=== PATIENT | male | born 1965 | race Caucasian/White ===

== ENCOUNTER 2020-09-27 11:00 | Outpatient (CLI) | payer BC, SELFPAY ==
[2020-09-27 11:09] VITALS: BMI 35.6
--- NOTE | 2020-09-27 11:09 | ECG_ITS ---
[facility] Test Date: 2020-09-27 Pat Name: Stewart Curry Jr Department: Room: Gender: Male Yarn Packer: : 1965 Requested By: Celine Gonzalez Order Number: [id number] Bagley MD: Anai Jaimes M.D. Interpretive Statements NAME OF STUDY: TREADMILL STRESS TEST INDICATION: Coronary Artery Disease Baseline blood pressure of 186/75 mm Hg, heart rate of 74 beats per minute and oxygen saturation 96%. EKG showed normal sinus rhythm, left anterior fascicular block. Right bundle branch block with secondary ST-T wave changes. The patient exercised for 9 minutes 19 seconds on a standard Kip protocol. Patient attained a maximum heart rate of 150 beats per minute(89% of the maximum predicted heart rate) with a blood pressure at the peak exercise of 216/93 mm Hg and oxygen saturation 96%. The EKG at the peak exercise revealed sinus tachycardia with no significant ST-T wave changes. Patient did not have any chest pain or any significant arrhythmis with the exercise. The study was terminated due to exertional fatigue and shortness of breath. During the recovery phase, there were no new changes. Isolated PVCs noted in recovery. Blood pressure at the end of the recovery phase was 157/86 mm Hg with a heart rate of 86 beats per minute and oxygen saturation 97%. CONCLUSION: 1. Normal EKG response to treadmill exercise. Interpretation limited by baseline ST-T wave changes. 2. No exercise-induced chest pain or cardiac arrhythmia 3. Excellent exercise tolerance, attained a maximum of 13.5 METs. Maximum VO2 of 47.3 mL/kg/min. 4. Baseline hypertension with normal response to exercise. Electronically Signed On 09-27-2020 13:52:20 SKIN SPECIALIST by Anai Jaimes M.D. [id number]
[2020-09-27 11:50] VITALS: BP 157/86; PULSE 86
== END 2020-09-27 11:01 | disposition home or self-care (01) ==
LOC: CDL 11:04
PROVIDERS: PCP Nurse Practitioner Family; Visit Provider Nurse Practitioner Family
DX: I25.10 Atherosclerotic heart disease of native coronary artery without angina pectoris (principal)
CPT/HCPCS: 93017

== ENCOUNTER 2022-07-31 09:36 | Outpatient (CLI) | payer BC, SELFPAY ==
--- NOTE | 2022-07-31 10:15 | USCV_ITS ---
Stewart Curry Age: 56 Gender: M : 1965 Exam Date: 07/31/2022 10:25 Ordering Phys: Tavon Crisostomo M.D ([email or web address]) Technologist: Vickie Horn [place] [facility] [place]: SOB, CABG BP: 120 / 70 HR: 50 Rhythm: Sinus Technical Quality: Adequate MEASUREMENTS (Male / Female) Normal Values 2D ECHO LV Diastolic Diameter PLAX 4.5 cm 4.2 - 5.9 / 3.9 - 5.3 cm LV Systolic Diameter PLAX 2.6 cm IVS Diastolic Thickness 1.5 cm 0.6 - 1.0 / 0.6 - 0.9 cm IVS Systolic Thickness 1.7 cm LVPW Diastolic Thickness 1.1 cm 0.6 - 1.0 / 0.6 - 0.9 cm LVPW Systolic Thickness 1.7 cm LVOT Diameter 2.3 cm LV Ejection Fraction 2D Teich 72.8 % LV Ejection Fraction MOD 2C 45.8 % LV Ejection Fraction 2C AL 46.0 % LA Diameter 4.0 cm LA Width 3.6 cm LA Height 5.0 cm RA Width 3.8 cm RA Height 4.6 cm Aorta at Sinotubular Diameter 3.2 cm IVC Diameter 2.0 cm M-MODE MV E Point Septal Separation 0.5 cm DOPPLER AV Peak Velocity 115.0 cm/s LVOT Peak Velocity 98.0 cm/s AV Area Cont Eq vti 3.6 cm squared AV Area Cont Eq pk 3.4 cm squared MV Peak Velocity 87.0 cm/s MV Area PHT 4.8 cm squared Mitral E to A Ratio 1.1 MV E' Velocity 82.0 cm/s TR Peak Velocity 61.0 cm/s TR Peak Gradient 1.5 mmHg Right Atrial Pressure 3.0 mmHg Pulmonary Artery Systolic Pressu 4.5 mmHg PV Peak Velocity 106.0 cm/s RV Acceleration Time 0.2 s RV Ejection Time 0.4 s RV AcT/ET 0.5 FINDINGS Left Ventricle Left ventricle is normal in size. LV systolic function is normal with EF of 50 to 55%. No regional wall motion abnormalities are seen. Right Ventricle RV size and function is normal Right Atrium Normal in size Left Atrium Normal in size Mitral Valve Structurally normal mitral valve. Mild mitral regurgitation. Aortic Valve Aortic valve is thickened. No significant stenosis or regurgitation seen Tricuspid Valve Insufficient TR jet to calculate RVSP Pulmonic Valve Mild pulmonic regurgitation Pericardium Normal Aorta Ascending aorta is normal in size IVC CONCLUSIONS LV systolic function is normal with EF 50 to 55%. Mild mitral regurgitation Aortic valve is thickened. Mild pulmonic regurgitation No comparison studies are available Tavon Crisostomo MD (Electronically Signed) Final Date: 09 August 2022 17:09 S
== END 2022-07-31 09:37 | disposition home or self-care (01) ==
PROVIDERS: PCP Nurse Practitioner Family; Visit Provider Internal Medicine
DX: Z95.1 Presence of aortocoronary bypass graft (principal); I10 Essential (primary) hypertension; I25.10 Atherosclerotic heart disease of native coronary artery without angina pectoris; I08.0 Rheumatic disorders of both mitral and aortic valves
CPT/HCPCS: 93306

== ENCOUNTER 2022-11-30 12:11 | Outpatient (CLI) | payer BC, SELFPAY ==
[2022-11-30 12:25] VITALS: BMI 35.6
--- NOTE | 2022-11-30 12:30 | ECG_ITS ---
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 Interpretive Statements NAME OF STUDY: TREADMILL STRESS TEST INDICATION: [DOT PHYSICAL CLEARANCE] EXERCISE DATA: The patient was exercised by Kip protocol. Baseline heart rate was 74 beats per minute. Baseline blood pressure was 144/84 millimeters of mercury. Target heart rate was 140 beats per minute. Maximum heart rate achieved was 152 which was 108% of the target heart rate. Maximum blood pressure was 194/91 millimeters of mercury. Total exercise time was 9 minutes. Maximum METs achieved was 10.2. The reason for ending the test was completion of the protocol. The patient complained of shortness of breath during the stress test, which then resolved at the end of the test. ELECTROCARDIOGRAM: BASELINE: Showed sinus rhythm, normal axis, PVCs and right bundle branch block. EKG interpretation is limited because of baseline ST-T wave changes and right bundle branch block CONCLUSION: 1. Exercise capacity is good 2. Heart rate response was appropriate 3. Blood pressure response was appropriate 4. Symptoms not suggestive of ischemia. 5. EKG interpretation of stress test is limited because of baseline right bundle branch block and ST-T wave changes.. Electronically Signed On 12-10-2022 11:44:38 TOP EXECUTIVE by Tavon Crisostomo M.D. [id number]
[2022-11-30 13:45] VITALS: BP 136/68; PULSE 83
== END 2022-11-30 12:12 | disposition home or self-care (01) ==
LOC: CDL 12:15
PROVIDERS: PCP Nurse Practitioner Family; Visit Provider Nurse Practitioner Family
DX: I25.10 Atherosclerotic heart disease of native coronary artery without angina pectoris (principal)
CPT/HCPCS: 93017

== ENCOUNTER 2024-08-14 07:48 | Observation (INO) | payer BC, SELFPAY ==
[2024-08-14] VITALS (10 sets, daily range): BP systolic 124–184; BP diastolic 72–104; PULSE 47–68; RESP 15–20; TEMP 36.8–38.2; O2SAT 92–98; BMI 36.9; BMI 37.5
--- NOTE | 2024-08-14 07:55 | XR_ITS ---
WS: [id number] Exam: XR chest 1V portable [id number] Date/Time of Exam: 08/14/2024 8:08 AM Reason For Exam: dyspnea/cough Comparison 10/03/2012. Lungs are fully inflated and clear. Normal cardiomediastinal silhouette. Signs of median sternotomy. Regional bony structures are intact. XR/XR chest 1V portable [id number] IMPRESSION: 1. Negative chest.
--- NOTE | 2024-08-14 07:55 | ECG_ITS ---
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 Measurements Intervals [place] Rate: 67 P: 24 DE: 185 QRS: -19 QRSD: 167 T: 71 QT: 429 QTc: 454 Interpretive Statements SINUS RHYTHM RIGHT BUNDLE BRANCH BLOCK [120+ ms QRS DURATION, UPRIGHT V1, 40+ ms S IN I/aVL/V4/V5/V6] No previous ECG available for comparison Electronically Signed On 08-14-2024 18:43:33 CDT by Tavon Crisostomo M.D. [id number] f
[2024-08-14 08:31] LABS: Basophils # 0.1 10^3/uL (0.0-0.1); Basophils % 0.9 %; Eosinophils # 0.1 10^3/uL (0.0-0.8); Eosinophils % 2.6 %; Hematocrit 43.4 % (37-53); Lymphocytes # 0.7 10^3/uL (0.8-4.8); Lymphocytes % 13.3 %; Mean Corpuscular HGB Conc 33.6 g/dL (30-55); Mean Corpuscular Volume 89.1 fl (82-101); Mean Platelet Volume 9.6 fL (7.4-10.4); Monocytes # 0.7 10^3/uL (0.2-0.9); Monocytes % 13.1 %; Neutrophils # 3.77 10^3/uL (1.8-7.7); Neutrophils % 69.5 %; Nucleated Red Blood Cells % 0 %; Platelet Count 147 10^3/cmm (157-399); Red Blood Count 4.87 10^6/uL (3.85-5.65); Red Cell Distribution Width 12.7 % (12.1-15.1); White Blood Count 5.42 10^3/uL (3.29-11.43)
[2024-08-14 08:50] LABS: Alanine Aminotransferase 38 U/L (0-41); Albumin Level 4.2 g/dL (3.5-5.2); Alkaline Phosphatase 63 U/L (40-130); Anion Gap 11.3 (5-19); Aspartate Amino Transferase 33 U/L (0-40); Blood Urea Nitrogen 10 mg/dL (6-20); Carbon Dioxide 25 mmol/L (22-29); Chloride 104 mmol/L (98-107); Creatinine Clr Calc Pharmacy 127.9994; Globulin 2.2 g/dL (1.3-4.6); Glomerular Filtration Rate 87.3 mL/min (90-130); Glucose 140 mg/dL (65-115); Osmolality Calculated 283 mOsm/kg (285-295); Potassium 4.3 mmol/L (3.5-5.1); Sodium 136 mmol/L (136-145); Total Bilirubin 0.8 mg/dL (0.15-1.2); Total Protein 6.4 g/dL (6.6-8.7)
[2024-08-14 08:51] LABS: Troponin(5th) Baseline 19 ng/L (0-15)
--- NOTE | 2024-08-14 09:47 | ED_ITS ---
HPI - Chest Pain 2 General: Chief Complaint: Chest Pain Stated Complaint: abn bp / (some chest pain) Time Seen by Provider: 08/14/24 07:54 History of Present Illness: 58-year-old male presents to the emergen cy room with complaint of elevated blood pressure and chest discomfort x 1wk. Radiates into his back he has a known history of coronary artery disease despite of intermittently having chest pain and abnormal blood pressures for the last week. He took his blood pressure medications about half hour before coming in today. No shortness of breath no orthopnea. Associated symptoms: Deny abdominal pain, dyspnea or fever(s) Related Data Home Medications Medication Instructions Recorded Confirmed amlodipine 10 mg tablet 10 mg PO DAILY 05/13/20 08/14/24 clopidogrel 75 mg tablet 75 mg PO DAILY 05/13/20 08/14/24 metformin 500 mg tablet 500 mg PO BID 05/15/22 08/14/24 diclofenac sodium 75 mg 75 mg PO DAILY 08/14/24 08/14/24 tablet,delayed release Previous Rx's Medication Instructions Recorded aspirin 81 mg tablet,delayed 81 mg PO DAILY #90 tabs 05/16/21 release (Adult Low Dose Aspirin) carvedilol 3.125 mg tablet (Coreg) 6.25 mg (2 x 3.125 mg) PO BID #180 07/31/24 tabs rosuvastatin 20 mg tablet 20 mg PO DAILY #90 tabs 07/31/24 Allergies Allergy/AdvReac Type Severity Reaction Status Date / Time Penicillins Allergy Unknown Unknown Verified 08/14/24 07:57 Review of Systems 2 Const: Denies: fever(s) or chills Card: Reports: chest pain Resp: Denies: dyspnea GI: Denies: abdominal pain : Denies: dysuria, urinary frequency or urinary urgency Musc: Denies: neck pain or back pain Skin/Breast: Denies: rash PFSH ED 2 PFSH: Medical History (Updated 08/14/24 @ 14:48 by Jarrett Bob DO) David syndrome HTN (hypertension) MARISSA (obstructive sleep apnea) Dyslipidemia ASHD (arteriosclerotic heart disease) Surgical History (Updated 08/14/24 @ 14:48 by Jarrett Bob DO) S/P CABG (coronary artery bypass graft) Family History Father Lung disease Social History Smoking and tobacco/nicotine status: never used tobacco/nicotine Household members: spouse Marital status: Physical Exam 2 Const: COMMON NORMALS: no acute distress GENERAL APPEARANCE: cooperative and comfortable ORIENTATION/CONSCIOUSNESS: Yes awake, Yes oriented to person, Yes oriented to place and Yes oriented to time HENMT: COMMON NORMALS: normocephalic, atraumatic and hearing grossly normal bilaterally HEAD & SCALP: normocephalic and atraumatic Resp: COMMON NORMALS: normal respiratory effort, No retractions, No use of accessory muscles and clear to auscultation bilaterally AUSCULTATION: clear to auscultation bilaterally Cardio: COMMON NORMALS: regular rate, regular rhythm and No murmurs present (Cardio) RATE: regular rate RHYTHM: regular rhythm GI: COMMON NORMALS: Soft to palpation and No hepatosplenomegaly present A USCULTATION: Yes normoactive bowel sounds PALPATION: Yes Soft to palpation, No Tenderness to palpation present (GI), No Guarding due to palpation present (GI) and Yes No hepatosplenomegaly present Extremity: COMMON NORMALS: normal to inspection, capillary refill normal, no clubbing, cyanosis or edema, no calf tenderness and no pedal edema Neuro: SENSORIUM/ORIENTATION: Yes oriented to person, Yes oriented to place and Yes oriented to time Skin: COMMON NORMALS: no rashes or lesions noted GENERAL SKIN EXAM: no rashes or lesions noted Course 2 Vital Signs: Vital signs: Vital Signs Temperature 99.4 F 08/14/24 07:57 Pulse Rate 51 L 08/14/24 13:56 Respiratory Rate 15 08/14/24 13:56 Blood Pressure 124/79 08/14/24 13:56 Pulse Oximetry 94 08/14/24 13:56 Oxygen Delivery Me thod Room Air 08/14/24 13:56 MDM - Chest Pain Medical Decision Making Labs and imaging reviewed. Cardiac enzymes are negative EKG is unchanged. 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 He has now been having intermittent chest pain for a week with a known history of coronary disease will admit for further evaluation including stress testing. Discussed with the patient. Blood pressure still elevated place him on half inch of Nitropaste. He has also received aspirin. Medical Records I reviewed the patient's medical records. Lab Data I reviewed the patient's lab results. 08/14/24 08:18 08/14/24 08:18 Radiology Impressions Chest X-Ray 08/14/24 07:55 IMPRESSION: 1. Negative chest. Laboratory Results WBC 5.42 10^3/uL (3.29-11.43) 08/14/24 08:18 RBC 4.87 10^6/uL (3.85-5.65) 08/14/24 08:18 Hgb 14.60 g/dL (11.27-16.99) 08/14/24 08:18 Hct 43.4 % (37-53) 08/14/24 08:18 MCV 89.1 fl (82-101) 08/14/24 08:18 MCH 30.0 pg (27-33) 08/14/24 08:18 MCHC 33.6 g/dL (30-55) 08/14/24 08:18 RDW 12.7 % (12.1-15.1) 08/14/24 08:18 Plt Count 147 10^3/cmm (157-399) L 08/14/24 08:18 MPV 9.6 fL (7.4-10.4) 08/14/24 08:18 Neut % (Auto) 69.5 % 08/14/24 08:18 Lymph % (Auto) 13.3 % 08/14/24 08:18 Dewitt % (Auto) 13.1 % 08/14/24 08:18 Eos % (Auto) 2.6 % 08/14/24 08:18 Baso % (Auto) 0.9 % 08/14/24 08:18 Neut # (Auto) 3.77 10^3/uL (1.8-7.7) 08/14/24 08:18 Lymph # (Auto) 0.7 10^3/uL (0.8-4.8) L 08/14/24 08:18 Dewitt # (Auto) 0.7 10^3/uL (0.2-0.9) 08/14/24 08:18 Eos # (Auto) 0.1 10^3/uL (0.0-0.8) 08/14/24 08:18 Baso # (Auto) 0.1 10^3/uL (0.0-0.1) 08/14/24 08:18 Nucleated RBC % (auto) 0 % 08/14/24 08:18 Nucleated RBCs # 0.0 /100WBC 08/14/24 08:18 Sodium 136 mmol/L (136-145) 08/14/24 08:18 Potassium 4.3 mmol/L (3.5-5.1) 08/14/24 08:18 Chloride 104 mmol/L (98-107) 08/14/24 08:18 Carbon Dioxide 25 mmol/L (22-29) 08/14/24 08:18 Anion Gap 11.3 (5-19) 08/14/24 08:18 BUN 10 mg/dL (6-20) 08/14/24 08:18 Creatinine 0.9 mg/dL (0.7-1.2) 08/14/24 08:18 GFR Calculation 87.3 mL/min (90-130) L 08/14/24 08:18 Glucose 140 mg/dL (65-115) H 08/14/24 08:18 Calculated Osmolality 283 mOsm/kg (285-295) L 08/14/24 08:18 Calcium 9.0 mg/dL (8.5-10.5) 08/14/24 08:18 Total Bilirubin 0.8 mg/dL (0.15-1.2) 08/14/24 08:18 AST 33 U/L (0-40) 08/14/24 08:18 ALT 38 U/L (0-41) 08/14/24 08:18 Alkaline Phosphatase 63 U/L (40-130) 08/14/24 08:18 Troponin T Baseline 19 ng/L (0-15) H 08/14/24 08:18 Troponin T 120 Minute 18.77 ng/L (0-15) H 08/14/24 10:18 Delta Troponin T -0.23 ABS# (0-10) L 08/14/24 10:18 Total Protein 6.4 g/dL (6.6-8.7) L 08/14/24 08:18 Albumin 4.2 g/dL (3.5-5.2) 08/14/24 08:18 Globulin 2.2 g/dL (1.3-4.6) 08/14/24 08:18 All radiology interpretation(s) finalized by discharge Clincial Decision Support The following clinical decision support tools were used to aid in care of the patient HEART Score -> History: Slightly Suspicous, EKG: Non-specific Changes, Age: 45- 64 yrs, Risk Factors: >/=3 Risk Factors, Troponin: Baseline Trop <16 ng/L. Resulting HEART Score: 4. Discharge Plan Discharge Patient Disposition: Placed in Observation Admit Provider: Kathe Etienne Clinical Impression: Chest pain, ASHD (arteriosclerotic heart disease), HTN (hypertension), S/P CABG (coronary artery bypass graft) Coding Level of Care Code ED Extractor Machine Operator for Pilar Vicente
--- NOTE | 2024-08-14 09:55 | ECG_ITS ---
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 Measurements Intervals [place] Rate: 55 P: 15 DC: 185 QRS: -15 QRSD: 169 T: 99 QT: 460 QTc: 443 Interpretive Statements SINUS BRADYCARDIA RIGHT BUNDLE BRANCH BLOCK [120+ ms QRS DURATION, UPRIGHT V1, 40+ ms S IN I/aVL/V4/V5/V6] MODERATE T-WAVE ABNORMALITY, CONSIDER LATERAL ISCHEMIA [-0.1+ mV T-WAVE IN I/aVL/V5/V6] Compared to ECG 08/14/2024 07:50:05 T-wave abnormality now present Possible ischemia now present Sinus rhythm no longer present Electronically Signed On 08-14-2024 18:54:51 CDT by Tavon Crisostomo M.D. [id number]
[2024-08-14 10:45] LABS: Troponin 5 2HR 18.77 ng/L (0-15)
[2024-08-14 10:49] LABS: Troponin 5 2HR Delta -0.23 ABS# (0-10)
[2024-08-14] MEDS: aspirin 81 mg Chew Tablet 324 MG PO (11:33)
[2024-08-14] MEDS: nitroglycerin 1 gm/inch oint Pkt 0.5 INCH TOPICAL (12:43)
--- NOTE | 2024-08-14 13:37 | PC.NURSE ---
Patient transferred from ED to CSU at 1330 via a wheelchair.
--- NOTE | 2024-08-14 13:51 | PM.HP ---
Providers/Chief Complaint Admitting Physician: Kathe Etienne MD Primary Care Provider: JAMIE Campos Chief Complaint: abn bp / (some chest pain) History of Present Illness Stewart Curry Jr is a 58 year old male with a history of coronary artery disease status post previous coronary artery bypass graft in 2007 who presented to the emergency room with chief complaint of left-sided chest pain. The pain is located in the left chest and substernal area without any radiation. He has had it off and on over the last week or so. He has had a mild nonproductive cough but no shortness of breath, nausea, vomiting or diaphoresis. No palpitations. Over the same timeframe he has had some elevations in his blood pressure. The symptoms and high blood pressures are very similar to the symptoms he experienced prior to being sent for bypass surgery many years ago. He feels like something is not right. This is the first time since his bypass surgery he has had any type of complaints of chest pain. At its worst the pain is 3 out of 10. When he was sent for bypass chest pain at that time at its worst was a 5 out of 10. He has not noted any discernible pattern. Pain will be brief up to a few hours or even a couple of days at a time without completely going away. He had some improvement with nitroglycerin in the emergency room but that was transient. Baseline and 2-hour troponin were around 19. Twelve-lead EKG with right bundle branch block and nonspecific changes similar to prior available comparisons. No ST elevation. Second EKG did demonstrate some bradycardia. He is on beta-blockade and recently had carvedilol dosing increased due to persistent blood pressure elevations. He was seen by Dr. Hayes on July 31. Last stress test was an exercise stress test in 11/2022. Review of Systems General: Reports: Other (ROS as per HPI or as otherwise noted here) Const: Denies: fever(s) Card: Reports: swelling of feet/ankles (not new or worse than baseline); Denies: syncope, dyspnea on exertion or orthopnea Resp: Denies: dyspnea or non-productive cough (mild) GI: Denies: abdominal pain, nausea, vomiting, change in bowel habits or hematochezia : Denies: difficulty urinating or hematuria Neuro: Denies: difficulty walking Cole/Lymph: Denies: easy bruising or easy bleeding Medications/Allergies Home Medications Medication Instructions Recorded Confirmed Last Taken Type amlodipine 10 mg tablet 10 mg PO DAILY 05/13/20 08/14/24 08/14/24 History clopidogrel 75 mg tablet 75 mg PO DAILY 05/13/20 08/14/24 08/14/24 History aspirin 81 mg tablet,delayed 81 mg PO DAILY #90 tabs 05/16/21 08/14/24 08/14/24 Rx release (Adult Low Dose Aspirin) metformin 500 mg tablet 500 mg PO BID 05/15/22 08/14/24 08/14/24 History carvedilol 3.125 mg tablet (Coreg) 6.25 mg (2 x 3.125 mg) PO BID #180 07/31/24 08/14/24 08/14/24 Rx tabs rosuvastatin 20 mg tablet 20 mg PO DAILY #90 tabs 07/31/24 08/14/24 08/14/24 Rx diclofenac sodium 75 mg 75 mg PO DAILY 08/14/24 08/14/24 08/14/24 History tablet,delayed release Allergies Allergy/AdvReac Type Severity Reaction Status Date / Time Penicillins Allergy Unknown Unknown Verified 08/14/24 07:57 PFSH Acute PFSH: Medical History (Updated 08/14/24 @ 20:01 by Kathe Etienne MD) Prediabetes History of pericarditis 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 HTN (hypertension) MARISSA (obstructive sleep apnea) Dyslipidemia ASHD (arteriosclerotic heart disease) Surgical History (Updated 08/14/24 @ 19:56 by Kathe Etienne MD) S/P CABG (coronary artery bypass graft) (~2007) 3V performed at [facility] Family History (Updated 08/14/24 @ 19:58 by Kathe Etienne MD) Father Lung disease Family/Other CAD (coronary artery disease) maternal uncle with CABG in 50s Mother Thyroid disease Other Diabetes Social History (Updated 08/14/24 @ 19:50 by Kathe Etienne MD) Smoking and tobacco/nicotine status: never used tobacco/nicotine Alcohol intake: never Substance/Drug Use: never Household members: spouse Marital status: Current occupational status: employed 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 Oriented x 3. Extraocular movements are intact. Moist mucous membranes. Neck is large but supple. Lungs are clear to auscultation bilaterally without any rales rhonchi or wheezes noted. Cardiovascular exam reveals regular rate and rhythm. No murmurs. Chest wall is not tender to palpation. Abdomen is soft, nontender with positive bowel sounds. Extremities 1+ pitting edema at the ankles. No calf tenderness. Data 08/14/24 08:18 08/14/24 08:18 Other Labs: Radiology Impressions Chest X-Ray 08/14/24 07:55 IMPRESSION: 1. Negative chest. Laboratory Results WBC 5.42 10^3/uL (3.29-11.43) 08/14/24 08:18 RBC 4.87 10^6/uL (3.85-5.65) 08/14/24 08:18 Hgb 14.60 g/dL (11.27-16.99) 08/14/24 08:18 Hct 43.4 % (37-53) 08/14/24 08:18 MCV 89.1 fl (82-101) 08/14/24 08:18 MCH 30.0 pg (27-33) 08/14/24 08:18 MCHC 33.6 g/dL (30-55) 08/14/24 08:18 RDW 12.7 % (12.1-15.1) 08/14/24 08:18 Plt Count 147 10^3/cmm (157-399) L 08/14/24 08:18 MPV 9.6 fL (7.4-10.4) 08/14/24 08:18 Neut % (Auto) 69.5 % 08/14/24 08:18 Lymph % (Auto) 13.3 % 08/14/24 08:18 Alexander % (Auto) 13.1 % 08/14/24 08:18 Eos % (Auto) 2.6 % 08/14/24 08:18 Baso % (Auto) 0.9 % 08/14/24 08:18 Neut # (Auto) 3.77 10^3/uL (1.8-7.7) 08/14/24 08:18 Lymph # (Auto) 0.7 10^3/uL (0.8-4.8) L 08/14/24 08:18 Alexander # (Auto) 0.7 10^3/uL (0.2-0.9) 08/14/24 08:18 Eos # (Auto) 0.1 10^3/uL (0.0-0.8) 08/14/24 08:18 Baso # (Auto) 0.1 10^3/uL (0.0-0.1) 08/14/24 08:18 Nucleated RBC % (auto) 0 % 08/14/24 08:18 Nucleated RBCs # 0.0 /100WBC 08/14/24 08:18 Sodium 136 mmol/L (136-145) 08/14/24 08:18 Potassium 4.3 mmol/L (3.5-5.1) 08/14/24 08:18 Chloride 104 mmol/L (98-107) 08/14/24 08:18 Carbon Dioxide 25 mmol/L (22-29) 08/14/24 08:18 Anion Gap 11.3 (5-19) 08/14/24 08:18 BUN 10 mg/dL (6-20) 08/14/24 08:18 Creatinine 0.9 mg/dL (0.7-1.2) 08/14/24 08:18 GFR Calculation 87.3 mL/min (90-130) L 08/14/24 08:18 Glucose 140 mg/dL (65-115) H 08/14/24 08:18 Calculated Osmolality 283 mOsm/kg (285-295) L 08/14/24 08:18 Calcium 9.0 mg/dL (8.5-10.5) 08/14/24 08:18 Total Bilirubin 0.8 mg/dL (0.15-1.2) 08/14/24 08:18 AST 33 U/L (0-40) 08/14/24 08:18 ALT 38 U/L (0-41) 08/14/24 08:18 Alkaline Phosphatase 63 U/L (40-130) 08/14/24 08:18 Troponin T Baseline 19 ng/L (0-15) H 08/14/24 08:18 Troponin T 120 Minute 18.77 ng/L (0-15) H 08/14/24 10:18 Delta Troponin T -0.23 ABS# (0-10) L 08/14/24 10:18 Total Protein 6.4 g/dL (6.6-8.7) L 08/14/24 08:18 Albumin 4.2 g/dL (3.5-5.2) 08/14/24 08:18 Globulin 2.2 g/dL (1.3-4.6) 08/14/24 08:18 A&P Assessment and plan (1) Chest pain: Precordial chest pain with features very similar to those experienced by Mr. Curry at the time he presented prior to being referred for bypass surgery. He has not had similar complaints of chest pain since 2007. Symptoms have been present off and on over the last week concerning for angina. Baseline and 2-hour troponin are similar without significant delta. EKG is similar to prior without any ST elevation. Mr. Curry follows with Dr. Parks in the outpatient setting and last saw him on July 31. At that time carvedilol dosing was increased due to suboptimally controlled blood pressures. He has had more notable bradycardia since then on vitals measured today that could be a contributing factor to chest pain Observation admission Stress testing with nuclear imaging Echocardiogram Continue serial cardiac enzymes with every 6 hours study Check hemoglobin A1c and lipid panel for further risk stratification Continue home aspirin, Plavix, beta-blockade and statin May have to consider dose adjustment to carvedilol Qualifiers: Chest pain type: precordial pain Qualified Code(s): R07.2 - Precordial pain (2) ASHD (arteriosclerotic heart disease): Status post three-vessel coronary artery bypass graft in 2007 at [facility] (3) HTN (hypertension): Primary hypertension, recently noted to be suboptimally controlled leading to increase in carvedilol dosing. Also on amlodipine. Continue home amlodipine Currently continuing home carvedilol though may have to consider decreasing dose due to bradycardia pending results of stress testing Qualifiers: Hypertension type: primary hypertension Qualified Code(s): I10 - Essential (primary) hypertension (4) Dyslipidemia: Statin therapy recently initiated at July cardiology clinic visit. Normal LFTs noted today. Continue statin therapy Check lipid panel in the morning (5) Prediabetes: Elevated blood sugars noted here. Recent A1c not available. Is on metformin twice daily chronically. Hold metformin secondary to potential need for contrast depending on results of stress testing Sliding scale insulin currently with Accu-Cheks A1c in the morning (6) MARISSA (obstructive sleep apnea): On CPAP at home with auto titrating settings from 6-12 May use home CPAP with sleep (7) BMI 36.0-36.9,adult: Plan Osteoarthritis predominantly involving the knees on diclofenac which is currently held pending cardiac evaluation, will give Tylenol in place of this VTE prophylaxis: Lovenox Antibiotics: none Pending studies: A1c, lipid, echo, stess test (lexiscan mibi) Telemetry: ordered due to chest pain Manjarrez: not currently indicated Line(s): peripheral IVs Disposition plan: Home with outpatient follow up to PCP and cardiology anticipated, possibly with medication adjustments (coreg) Code Status: Full Code Supportive care otherwise Findings, concerns and plans were discussed with patient and he was given an opportunity to ask questions Attestations Medical Necessity Statement*: Currently anticipate a stay less than two midnights in this gentleman presenting with chest pain who has a history of coronary artery disease status post prior bypass surgery. Symptoms today are very similar to symptoms prior to his bypass surgery in 2007. He has had chest pain for about a week. Plan is for further evaluation with continued cardiac enzymes, echocardiogram and nuclear stress testing as described above. Diagnoses Precordial pain R07.2 Chest pain type: precordial pain ASHD (arteriosclerotic heart disease) I25.10 Primary hypertension I10 Hypertension type: primary hypertension Dyslipidemia E78.5 Prediabetes R73.03 MARISSA (obstructive sleep apnea) G47.33 BMI 36.0-36.9,adult Z68.36
--- NOTE | 2024-08-14 13:55 | ECG_ITS ---
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 Measurements Intervals [place] Rate: 51 P: 14 ND: 190 QRS: -11 QRSD: 162 T: 114 QT: 483 QTc: 445 Interpretive Statements SINUS BRADYCARDIA RIGHT BUNDLE BRANCH BLOCK [120+ ms QRS DURATION, UPRIGHT V1, 40+ ms S IN I/aVL/V4/V5/V6] MODERATE T-WAVE ABNORMALITY, CONSIDER LATERAL ISCHEMIA [-0.1+ mV T-WAVE IN I/aVL/V5/V6] Compared to ECG 08/14/2024 09:49:51 No significant changes Electronically Signed On 08-14-2024 18:53:24 CDT by Tavon Crisostomo M.D. [id number]
--- NOTE | 2024-08-14 14:03 | USCV_ITS ---
Stewart Curry Age: 58 Gender: M : 1965 Exam Date: 08/14/2024 15:12 Ordering Phys: Kathe Etienne MD Technologist: Exam Location: [facility] [place] Indication: cp BP: 125 / 70 HR: 1828 Rhythm: Sinus Technical Quality: Adequate MEASUREMENTS (Male / Female) Normal Values 2D ECHO LV Diastolic Diameter PLAX 4.1 cm 4.2 - 5.9 / 3.9 - 5.3 cm IVS Diastolic Thickness 1.0 cm 0.6 - 1.0 / 0.6 - 0.9 cm IVS Systolic Thickness 1.8 cm LVPW Diastolic Thickness 1.1 cm 0.6 - 1.0 / 0.6 - 0.9 cm LVPW Systolic Thickness 1.2 cm LVOT Diameter 2.1 cm LV Ejection Fraction 2D Teich 65.8 % LV Ejection Fraction MOD 4C 61.2 % LV Ejection Fraction MOD 2C 79.4 % LV Ejection Fraction 2C AL 78.8 % LA Diameter 4.6 cm RA Systolic Volume 4C AL 68.0 ml RA Systolic Volume 4C MOD 61.0 ml Aorta at Sinotubular Diameter 3.2 cm M-MODE LA Ao Ratio MM 1.4 AV Cusp Separation MM 2.3 cm DOPPLER AV Peak Velocity 67.3 cm/s AV Area Cont Eq vti 6.2 cm squared AV Area Cont Eq pk 5.4 cm squared MV Area PHT 3.0 cm squared Mitral E to A Ratio 0.9 TR Peak Velocity 136.0 cm/s TR Peak Gradient 7.4 mmHg TV Peak E Velocity 98.0 cm/s Right Atrial Pressure 3.0 mmHg Pulmonary Artery Systolic Pressu 10.4 mmHg PV Peak Velocity 114.0 cm/s FINDINGS Left Ventricle Left ventricle is normal in size. LV systolic function is normal with EF of 60 to 65%. No regional wall motion abnormalities are seen. Right Ventricle Normal in size and function. Right Atrium Normal in size Left Atrium Normal in size Mitral Valve Structurally normal mitral valve. Mild mitral regurgitation. Aortic Valve Structurally normal aortic valve. No significant stenosis or regurgitation. Tricuspid Valve Mild tricuspid regurgitation. Pulmonary artery systolic pressure is normal. Pulmonic Valve Trace pulmonic regurgitation. Pericardium Normal Aorta Normal in size IVC Appears to be normal CONCLUSIONS LV systolic function is normal with EF of 60 -65%. Mild mitral regurgitation. Mild tricuspid regurgitation Trace pulmonic regurgitation Compared to prior echocardiogram from 2021, LV systolic function appears to be improved. Tavon Crisostomo MD (Electronically Signed) Final Date: 15 August 2024 08:47 S
--- NOTE | 2024-08-14 14:03 | ECG_ITS ---
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 Interpretive Statements Lung unchanged pre/post procedure; No Symptoms Reported [id number]
[2024-08-14] MEDS: enoxaparin 40 mg/0.4 mL Syringe SUBCUT (14:41)
[2024-08-14 15:22] LABS: Troponin 5 6HR 15.74 ng/L (0-15)
[2024-08-14 15:23] LABS: Troponin 5 6HR Delta -3.26 ng/L (0-12)
[2024-08-14 17:24] LABS: Glucose Point of Care 159 mg/dL (70-110)
[2024-08-14] MEDS: insulin lispro 100 unit/1 mL SUBCUT (17:38)
[2024-08-14] MEDS: carvedilol 3.125 mg Tablet 6.25 MG PO (21:05)
[2024-08-14 21:32] LABS: Glucose Point of Care 119 mg/dL (70-110)
[2024-08-15] VITALS (12 sets, daily range): BP systolic 110–139; BP diastolic 60–82; PULSE 52–73; RESP 18–27; TEMP 36.6–37.5; O2SAT 91–97
[2024-08-15] MEDS: acetaminophen 325 mg Tablet 650 MG PO ×2 (02:53→20:10)
[2024-08-15 04:21] LABS: Basophils % 0.3 %; Eosinophils # 0.1 10^3/uL (0.0-0.8); Eosinophils % 1.2 %; Hematocrit 41.5 % (37-53); Lymphocytes # 0.8 10^3/uL (0.8-4.8); Lymphocytes % 14.4 %; Mean Corpuscular HGB Conc 34.2 g/dL (30-55); Mean Corpuscular Hemoglobin 30.4 pg (27-33); Mean Corpuscular Volume 88.9 fl (82-101); Mean Platelet Volume 9.7 fL (7.4-10.4); Monocytes # 0.7 10^3/uL (0.2-0.9); Monocytes % 11.6 %; Neutrophils # 4.13 10^3/uL (1.8-7.7); Neutrophils % 71.8 %; Nucleated Red Blood Cells % 0 %; Platelet Count 149 10^3/cmm (157-399); Red Blood Count 4.67 10^6/uL (3.85-5.65); Red Cell Distribution Width 12.8 % (12.1-15.1); White Blood Count 5.76 10^3/uL (3.29-11.43)
[2024-08-15 04:22] LABS: Partial Thromboplastin Time 30.1 SECONDS (23.9-36.7)
[2024-08-15 04:31] LABS: Anion Gap 15.1 (5-19); Blood Urea Nitrogen 12 mg/dL (6-20); Calcium 8.5 mg/dL (8.5-10.5); Carbon Dioxide 23 mmol/L (22-29); Chloride 104 mmol/L (98-107); Glomerular Filtration Rate 77.3 mL/min (90-130); Glucose 147 mg/dL (65-115); Magnesium 1.7 mg/dL (1.7-2.3); Osmolality Calculated 288 mOsm/kg (285-295); Potassium 4.1 mmol/L (3.5-5.1); Sodium 138 mmol/L (136-145)
[2024-08-15 04:36] LABS: Estmated Average Glucose 131; Hemoglobin A1C 6.2 % (4.0-6.0)
[2024-08-15 04:42] LABS: Cholesterol 109 mg/dL (0-200); HDL Cholesterol 33 mg/dL (60-100); LDL Cholesterol Calculated 53 mg/dL (50-129); LDL HDL Ratio 1.61 RATIO (0.00-3.22); NT Pro B Type Natriuretic Pept 40 pg/mL (0-125); Triglycerides 114 mg/dL (0-150)
[2024-08-15 06:13] LABS: Glucose Point of Care 112 mg/dL (70-110)
[2024-08-15] MEDS: regadenoson 0.4 Mg/5 ml Syringe IVP (07:13)
--- NOTE | 2024-08-15 08:22 | PC.NURSE ---
Patient returned to unit from stress test at 0822.
[2024-08-15] MEDS: aspirin 81 mg EC Tablet PO (08:29)
[2024-08-15] MEDS: pantoprazole DR 40 mg Tablet PO (08:29)
[2024-08-15] MEDS: amlodipine 10 mg Tablet PO (08:29)
[2024-08-15] MEDS: clopidogrel 75 mg Tablet PO (08:29)
[2024-08-15] MEDS: atorvastatin 40 mg Tablet 80 MG PO (08:29)
[2024-08-15] MEDS: carvedilol 3.125 mg Tablet 6.25 MG PO ×2 (08:29→20:10)
--- NOTE | 2024-08-15 08:30 | PC.NURSE ---
Provider ordered lasix 20mg IVP once. order entered.
[2024-08-15] MEDS: FUROsemide 10 mg/mL SDV 2mL 20 MG IVP (09:17)
--- NOTE | 2024-08-15 09:18 | PC.CHAP ---
Pastoral Care Encounter/Spiritual Assessment Type of Contact [] Declined pipe machine operator visit [] Patient/Family/Request visit [] Outpatient visit [] Follow-up visit [] Physician referral [] Code/Alert [x] Routine visit [] Staff referral [] Actively dying [] Patient sleeping [] Family support [] [] Out of room [] Palliative care [] [] Receiving care in room [] Pre-surgical visit [] Trauma [] Long length of stay [] ICU visit [] Other: Relational/Emotional Strength [x] Patient feels connected with others/family/visitors/staff [] Distress [] Loneliness/isolation [] Abandonment Spirituality of Patient [x] Person of Tess [] Attends Advent of their Tess [x] Believes in Prayer [] Reads Bible or Restorationist materials [] There are Spiritual issues to be addressed 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 Interventions [x] Prayer [x] Active listening [] Non-anxious presence [x] Spiritual/emotional support [] Crisis/trauma care [] Spiritual counseling [] Bereavement support [] Provided bereavement packet [] Provided Bible/devotional materials [] Provided toy/stuffed animal, coloring book to patient or family member [] Provided Communion [] Anointing/Neal [] Salvation [x] Completed spiritual assessment [] Other: Impact on Illness or Injury [] Angry [] Fearful [] Anxious [] Often cries [] Exhaustion [] Unable to work [] Unable to attend holiness [] Unable to walk/stand [] Unable to read [] Unable to drive [] Unable to eat/drink [] Unable to sleep [] Unable to be with family [] Patient intubated [] Other: Summary Time spent with patient 5 min
--- NOTE | 2024-08-15 11:43 | P.PN_ITS ---
Subjective 2 Subjective: Patient was seen this morning, currently chest pain-free, underwent cardiac stress testing, denies any fevers, chills, no cough does have minimal lower extremity edema, discussed cardiac stress test with Dr. Crisostomo, shows evidence of ischemia left circumflex territory, plan on cardiac catheterization tomorrow n.p.o. midnight, spoke to patient again about stress test results, plan on cath tomorrow, he is agreeable, will monitor today, Vitals/I&O/Wt Last Vital Signs Temp 98.1 F 08/15/24 11:36 Pulse 57 L 08/15/24 11:36 Resp 18 08/15/24 11:36 BP 110/64 08/15/24 11:36 Pulse Ox 96 08/15/24 11:36 O2 Del Method Room Air 08/15/24 11:36 08/14/24 08/15/24 08/15/24 22:59 06:59 14:59 Intake Total 240 / 240 240 / 240 Balance 240 / 240 240 / 240 Weight last 48 hrs Weight 126.416 kg Weight 129 kg Weight 127.006 kg Physical Exam 2 Const: COMMON NORMALS: no acute distress and patient oriented x3 Resp: COMMON NORMALS: normal respiratory effort, No retractions, No use of accessory muscles and clear to auscultation bilaterally AUSCULTATION: clear to auscultation bilaterally Cardio: COMMON NORMALS: regular rate, regular rhythm, S1 normal heart sound present and S2 normal heart sound present RATE: regular rate RHYTHM: r egular rhythm HEART SOUNDS: S1 normal heart sound present and S2 normal heart sound present GI: COMMON NORMALS: Normal to inspection, nondistended, normoactive bowel sounds present and non-tender Extremity: NARRATIVE EXTREMITY EXAM: 1+ edema Neuro: COMMON NORMALS: patient oriented x3 Psych: COMMON NORMALS: mental status grossly normal Data 08/15/24 03:47 08/15/24 03:47 A&P Assessment and plan (1) ASHD (arteriosclerotic heart disease): Status post three-vessel coronary artery bypass graft in 2007 at [facility] (2) HTN (hypertension): Qualifiers: Hypertension type: primary hypertension Qualified Code(s): I10 - Essential (primary) hypertension (3) Dyslipidemia: (4) Prediabetes: (5) MARISSA (obstructive sleep apnea): On CPAP at home with auto titrating settings from 6-12 May use home CPAP with sleep (6) BMI 36.0-36.9,adult: Plan Chest pain Cardiac stress testing IMPRESSIONS 1. Abnormal myocardial perfusion imaging with medium sized area of prior infarct with significant medium to large sized area of trinity-infarct ischemia seen in the left circumflex artery territory. 2. LV systolic function is normal Cardiac echo CONCLUSIONS LV systolic function is normal with EF of 60 -65%. Mild mitral regurgitation. Mild tricuspid regurgitation Trace pulmonic regurgitation Compared to prior echocardiogram from 2021, LV systolic function appears to be improved. ? Plan ? Continue aspirin, statin, Plavix, Coreg ? N.p.o. midnight, for coronary angiography tomorrow ? Cardiology consulted ? Monitor chest pain Osteoarthritis predominantly involving the knees on diclofenac which is currently held pending cardiac evaluation, will give Tylenol in place of this VTE prophylaxis: Lovenox Antibiotics: none Pending studies: A1c, lipid, echo, stess test (lexiscan mibi) Telemetry: ordered due to chest pain Manjarrez: not currently indicated Line(s): peripheral IVs Disposition plan: Home with outpatient follow up to PCP and cardiology anticipated, possibly with medication adjustments (coreg) Code Status: Full Code Supportive care otherwise Findings, concerns and plans were discussed with patient and he was given an opportunity to ask questions Attestations 2 Medical Necessity Statement*: Patient requires hospitalization for chest pain undergoing coronary angiography tomorrow, cardiology consulted Diagnoses ASHD (arteriosclerotic heart disease) I25.10 Primary hypertension I10 Hypertension type: primary hypertension Dyslipidemia E78.5 Prediabetes R73.03 MARISSA (obstructive sleep apnea) G47.33 BMI 36.0-36.9,adult Z68.36
--- NOTE | 2024-08-15 14:03 | NMCV_ITS ---
NM mariel perf SPECT r/s* [id number] Stewart Curry Age: 58 Gender: M : 1965 Exam Date: 08/15/2024 06:29 Ordering Phys: Kathe Etienne MD Technologist: BERNICE Cedillo Exam Location: [facility] Indications: cp STRESS TEST Please see separate stress test report in [facility] for full findings IMAGE PROTOCOL Rest/Stress 1 Lexiscan Day Radiopharmaceutical Dose (mCi) Administration Site Administered by Rest: Tc-99m 11 IV Yudi Morton, SLOT OPERATIONS DIRECTOR Sestamibi Stress:Tc-99m 32.9 IV Yudi Morton, SLOT OPERATIONS DIRECTOR Sestamibi Rest: 15-Aug-2024 60 Discovery 630 Stress: 15-Aug-2024 30 Discovery 630 0.4mg Lexiscan. Images obtained in supine and prone position. SPECT RESULTS Technical Quality: Good Raw Data Analysis: Normal Image Corrections: No attenuation or motion correction applied Summed Stress Score: 7 Summed Rest Score: 3 Summed Difference Score: 4 PERFUSION FINDINGS There is a medium sized area of partially reversible perfusion defect noted in inferolateral wall. This is consistent with medium sized area of prior infarct with significant medium to large sized area of trinity-infarct ischemia seen in the left circumflex artery territory. FUNCTIONAL RESULTS (calculated via Gated SPECT) Stress Image LV EF (%): 61 Stress EDV (mL):138 TID: 1.09 Stress ESV (mL):54 FUNCTIONAL FINDINGS: There is normal left ventricular systolic function. IMPRESSIONS 1. Abnormal myocardial perfusion imaging with medium sized area of prior infarct with significant medium to large sized area of trinity-infarct ischemia seen in the left circumflex artery territory. 2. LV systolic function is normal Tavon Crisostomo MD (Electronically Signed) Final Date: 15 August 2024 09:04 S
[2024-08-15] MEDS: enoxaparin 40 mg/0.4 mL Syringe SUBCUT (14:31)
--- NOTE | 2024-08-15 16:20 | P.CONIM_ITS ---
Providers/Reason For Consult 2 Consulting Physician/Specialty*: Tavon Crisostomo MD/ Cardiology Reason for Consult*: Chest pain/abnormal stress test Requesting Physician: Amari Sigala MD Attending Physician: Amari Sigala MD Primary Care Provider: JAMIE Campos History of Present Illness History of Present Illness Stewart Curry Jr is a 58 year old male with past medical history of coronary artery disease with CABG performed in 2007, who has been having on and off chest pain for last 1 week. Has a stress test that is showing prior infarct with significant trinity-infarct ischemia seen in the lateral/inferolateral wall. EKG shows sinus rhythm with right bundle branch block. Troponins have not trended up. ECHO shows normal LV systolic function Review of Systems 2 Const: Denies: fever(s) or chills Card: Reports: chest pain Resp: Denies: dyspnea GI: Denies: abdominal pain : Denies: dysuria, urinary frequency or urinary urgency Musc: Denies: neck pain or back pain Skin/Breast: Denies: rash Medications/Allergies Home Medications Medication Instructions Recorded Confirmed Last Taken Type amlodipine 10 mg tablet 10 mg PO DAILY 05/13/20 08/14/24 08/14/24 History clopidogrel 75 mg tablet 75 mg PO DAILY 05/13/20 08/14/24 08/14/24 History aspirin 81 mg tablet,delayed 81 mg PO DAILY #90 tabs 05/16/21 08/14/24 08/14/24 Rx release (Adult Low Dose Aspirin) metformin 500 mg tablet 500 mg PO BID 05/15/22 08/14/24 08/14/24 History carvedilol 3.125 mg tablet (Coreg) 6.25 mg (2 x 3.125 mg) PO BID #180 07/31/24 08/14/24 08/14/24 Rx tabs rosuvastatin 20 mg tablet 20 mg PO DAILY #90 tabs 07/31/24 08/14/24 08/14/24 Rx diclofenac sodium 75 mg 75 mg PO DAILY 08/14/24 08/14/24 08/14/24 History tablet,delayed release Allergies Allergy/AdvReac Type Severity Reaction Status Date / Time Penicillins Allergy Unknown Unknown Verified 08/14/24 07:57 Current Medications Generic Name Dose Route Start Last Admin Trade Name Freq PRN Reason Stop Dose Admin Acetaminophen 650 mg 08/14/24 13:56 08/15/24 02:53 Acetaminophen 325 Mg Tablet PO 650 mg Q6H PRN Administration Mild/Mod Pain Or Temp >/= 101 Amlodipine Besylate 10 mg 08/15/24 09:00 08/15/24 08:29 Amlodipine 10 Mg Tablet PO 10 mg DAILY FORTUNATO Administration Aspirin 81 mg 08/15/24 09:00 08/15/24 08:29 Aspirin 81 Mg Ec Tablet PO 81 mg DAILY FORTUNATO Administration Atorvastatin Calcium 80 mg 08/15/24 09:00 08/15/24 08:29 Atorvastatin 40 Mg Tablet PO 80 mg DAILY FORTUNATO Administration Carvedilol 6.25 mg 08/14/24 21:00 08/15/24 08:29 Carvedilol 3.125 Mg Tablet PO 6.25 mg BID@ FORTUNATO Administration Clopidogrel Bisulfate 75 mg 08/15/24 09:00 08/15/24 08:29 Clopidogrel 75 Mg Tablet PO 75 mg DAILY FORTUNATO Administration Enoxaparin Sodium 40 mg 08/14/24 14:00 08/15/24 14:31 Enoxaparin 40 Mg/0.4 Ml Syringe SUBCUT 40 mg Q24H FORTUNATO Administration Insulin Human Lispro 0 unit 08/14/24 21:00 08/14/24 21:41 Insulin Lispro 100 Unit/1 Ml SUBCUT Not Given BEDTIME FORTUNATO Protocol Insulin Human Lispro 0 unit 08/14/24 18:00 08/15/24 12:26 Insulin Lispro 100 Unit/1 Ml SUBCUT Not Given TIDWM [facility] Protocol Pantoprazole Sodium 40 mg 08/15/24 09:00 08/15/24 08:[address] 40 Mg Tablet PO 40 mg DAILY FORTUNATO Administration PFSH Acute 2 PFSH: Medical History Prediabetes History of pericarditis 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 HTN (hypertension) MARISSA (obstructive sleep apnea) Dyslipidemia ASHD (arteriosclerotic heart disease) Surgical History S/P CABG (coronary artery bypass graft) (~2007) 3V performed at [facility] Family History Father Lung disease Family/Other CAD (coronary artery disease) maternal uncle with CABG in 50s Mother Thyroid disease Other Diabetes Social History Smoking and tobacco/nicotine status: never used tobacco/nicotine Alcohol intake: never Substance/Drug Use: never Household members: spouse Marital status: Current occupational status: employed 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 [] NECK: No jugular vein distension. [] HEENT: No cyanosis. No icterus. No pallor. [] HEART: Regular S1 and S2. No murmur, rub or gallop. [] LUNGS: Clear to auscultate bilaterally. [] CENTRAL NERVOUS SYSTEM: Grossly nonfocal. [] EXTREMITIES: Lower extremities with 1+ edema bilaterally. Data 08/16/24 04:37 08/16/24 04:37 A&P Assessment and plan (1) Chest pain: Qualifiers: Chest pain type: precordial pain Qualified Code(s): R07.2 - Precordial pain (2) S/P CABG (coronary artery bypass graft): (3) Dyslipidemia: (4) HTN (hypertension): Qualifiers: Hypertension type: primary hypertension Qualified Code(s): I10 - Essential (primary) hypertension (5) ASHD (arteriosclerotic heart disease): Plan Patient has new onset anginal symptoms. Stress test is abnormal. With multiple risk factors and new onset angina, we will proceed with coronary angiogram with possible PCI. Risks and benefits of procedure were discussed. We will proceed with the procedure tomorrow morning. N.p.o. past midnight. Thank you for involving us with care of this patient. We will continue to follow. Please call with questions. Consult Attestations 2 Medical Necessity Statement: Care expected to cross 2 midnights. Coding Level of Care Code Acute Code for Chg Fwd Diagnoses Precordial pain R07.2 Chest pain type: precordial pain S/P CABG (coronary artery bypass graft) Z95.1 Dyslipidemia E78.5 Primary hypertension I10 Hypertension type: primary hypertension ASHD (arteriosclerotic heart disease) I25.10
[2024-08-15 17:26] LABS: Glucose Point of Care 152 mg/dL (70-110)
[2024-08-15 17:26] LABS: Glucose Point of Care 126 mg/dL (70-110)
[2024-08-15 17:26] LABS: Glucose Point of Care 195 mg/dL (70-110)
[2024-08-15 17:26] LABS: Glucose Point of Care 194 mg/dL (70-110)
[2024-08-15 20:55] LABS: Glucose Point of Care 141 mg/dL (70-110)
[2024-08-16] VITALS (12 sets, daily range): BP systolic 94–129; BP diastolic 48–85; PULSE 50–64; RESP 13–28; TEMP 36.7–37.2; O2SAT 94–98
[2024-08-16 05:14] LABS: Basophils % 0.8 %; Eosinophils # 0.1 10^3/uL (0.0-0.8); Eosinophils % 3.8 %; Hematocrit 40.9 % (37-53); Lymphocytes # 1.2 10^3/uL (0.8-4.8); Lymphocytes % 31.3 %; Mean Corpuscular HGB Conc 33.7 g/dL (30-55); Mean Corpuscular Hemoglobin 29.9 pg (27-33); Mean Corpuscular Volume 88.7 fl (82-101); Mean Platelet Volume 9.6 fL (7.4-10.4); Monocytes # 0.9 10^3/uL (0.2-0.9); Monocytes % 23.1 %; Neutrophils # 1.49 10^3/uL (1.8-7.7); Neutrophils % 40.5 %; Nucleated Red Blood Cells % 0 %; Platelet Count 142 10^3/cmm (157-399); Red Blood Count 4.61 10^6/uL (3.85-5.65); White Blood Count 3.68 10^3/uL (3.29-11.43)
[2024-08-16 05:32] LABS: Anion Gap 10.1 (5-19); Blood Urea Nitrogen 10 mg/dL (6-20); Calcium 8.5 mg/dL (8.5-10.5); Carbon Dioxide 28 mmol/L (22-29); Chloride 106 mmol/L (98-107); Creatinine Clr Calc Pharmacy 114.9241; Glomerular Filtration Rate 77.3 mL/min (90-130); Glucose 105 mg/dL (65-115); Osmolality Calculated 289 mOsm/kg (285-295); Potassium 4.1 mmol/L (3.5-5.1); Sodium 140 mmol/L (136-145)
--- NOTE | 2024-08-16 06:22 | W.PM.OPSUD ---
Surgery/Procedure H&P Update DATE OF PROCEDURE: August 16, 2024 DATE H&P PERFORMED: 08/15/24 H&P UPDATE INFORMATION: I have reviewed H&P completed within last 30 days, I have examined patient prior to procedure and No changes to prior documentation PREOP DIAGNOSIS: Chest pain/abnormal stress test PRIMARY INDICATION FOR PROCEDURE: Chest pain/abnormal stress test PLANNED PROCEDURE: Left heart cath with possible percutaneous coronary intervention PATIENT REASSESSED PRIOR TO SEDATION, WITH NO CHANGE NOTED: Yes PHYSICAL EXAM: alert, oriented x 3, clear to auscultation bilaterally and regular rate & rhythm AIRWAY EVAL/ANESTHESIA PLAN: normal airway, ASA III, Local Anesthesia, Risks, benefits & alternatives of sedation and/or procedure discussed and Patient agrees to continue as planned ADDITIONAL INFORMATION: Moderate sedation
--- NOTE | 2024-08-16 07:23 | PC.NURSE ---
Patient returned to CSU from catheterization laboratory technician at 0710.
[2024-08-16 07:56] LABS: Glucose Point of Care 139 mg/dL (70-110)
--- NOTE | 2024-08-16 08:07 | P.PN_ITS ---
Subjective 2 Subjective: Patient is chest pain free. Patient had PCI to SVG to Diagonal artery. SVG to OM is patent. LOPEZ is atretic and occluded. [place] LAD is patent. Vitals/I&O/Wt Last Vital Signs Temp 98.1 F 08/16/24 07:26 Pulse 55 L 08/16/24 07:53 Resp 17 08/16/24 07:53 BP 116/75 08/16/24 07:53 Pulse Ox 96 08/16/24 07:53 O2 Del Method Room Air 08/16/24 07:53 08/15/24 08/16/24 08/16/24 22:59 06:59 14:59 Intake Total 120 / 600 Balance 120 / 600 Weight last 48 hrs Weight 278 lb 11.2 oz Weight 278 lb 11.2 oz Weight 284 lb 6.341 oz Physical Exam 2 Narrative: GENERAL: Patient is alert, awake and oriented x3. [] NECK: No jugular vein distension. [] HEENT: No cyanosis. No icterus. No pallor. [] HEART: Regular S1 and S2. No murmur, rub or gallop. [] LUNGS: Clear to auscultate bilaterally. [] CENTRAL NERVOUS SYSTEM: Grossly nonfocal. [] EXTREMITIES: Lower extremities with 1+ edema bilaterally. Data 08/16/24 04:37 08/16/24 04:37 A&P Assessment and plan (1) Chest pain: Qualifiers: Chest pain type: precordial pain Qualified Code(s): R07.2 - Precordial pain (2) S/P CABG (coronary artery bypass graft): (3) Dyslipidemia: (4) HTN (hypertension): Qualifiers: Hypertension type: primary hypertension Qualified Code(s): I10 - Essential (primary) hypertension (5) ASHD (arteriosclerotic heart disease): Plan Patient had successful vascularization of SVG to diagonal artery with 1 stent. Continue aspirin and plavix High intensity statin therapy Thank you for involving us with care of this patient. We will continue to follow. Please call with questions. Attestations 2 Medical Necessity Statement*: Care expected to cross 2 midnights. Coding Level of Care Code Acute Code for Chg Fwd Diagnoses Precordial pain R07.2 Chest pain type: precordial pain S/P CABG (coronary artery bypass graft) Z95.1 Dyslipidemia E78.5 Primary hypertension I10 Hypertension type: primary hypertension ASHD (arteriosclerotic heart disease) I25.10
[2024-08-16] MEDS: atorvastatin 40 mg Tablet 80 MG PO (08:23)
[2024-08-16] MEDS: pantoprazole DR 40 mg Tablet PO (08:23)
[2024-08-16] MEDS: carvedilol 3.125 mg Tablet 6.25 MG PO ×2 (08:24→20:34)
[2024-08-16] MEDS: amlodipine 10 mg Tablet PO (08:24)
--- NOTE | 2024-08-16 11:52 | PM.PN ---
Subjective Subjective: Patient was seen this morning, he denies any chest pain, status post cath, status post cardiac stenting Vitals/I&O/Wt Last Vital Signs Temp 98.7 F 08/16/24 11:06 Pulse 60 08/16/24 11:06 Resp 28 H 08/16/24 11:06 BP 113/71 08/16/24 11:06 Pulse Ox 96 08/16/24 11:06 O2 Del Method Room Air 08/16/24 11:06 08/15/24 08/16/24 08/16/24 22:59 06:59 14:59 Intake Total 120 / 600 240 / 240 Balance 120 / 600 240 / 240 Weight last 48 hrs Weight 126.416 kg Weight 126.416 kg Weight 129 kg Physical Exam Const: COMMON NORMALS: no acute distress and patient oriented x3 Resp: COMMON NORMALS: normal respiratory effort, No retractions, No use of accessory muscles and clear to auscultation bilaterally AUSCULTATION: clear to auscultation bilaterally Cardio: COMMON NORMALS: regular rate, regular rhythm, S1 normal heart sound present and S2 normal heart sound present RATE: regular rate RHYTHM: regular rhythm HEART SOUNDS: S1 normal heart sound present and S2 normal heart sound present GI: COMMON NORMALS: Normal to inspection, nondistended, normoactive bowel sounds present and non-tender Extremity: COMMON NORMALS: no pedal edema Neuro: COMMON NORMALS: patient oriented x3 Psych: COMMON NORMALS: mental status grossly normal Data 08/16/24 04:37 08/16/24 04:37 A&P Assessment and plan (1) ASHD (arteriosclerotic heart disease): Status post three-vessel coronary artery bypass graft in 2007 at [facility] (2) HTN (hypertension): Qualifiers: Hypertension type: primary hypertension Qualified Code(s): I10 - Essential (primary) hypertension (3) Dyslipidemia: (4) Prediabetes: (5) MARISSA (obstructive sleep apnea): On CPAP at home with auto titrating settings from 6-12 May use home CPAP with sleep (6) BMI 36.0-36.9,adult: Plan Chest pain Cardiac stress testing IMPRESSIONS 1. Abnormal myocardial perfusion imaging with medium sized area of prior infarct with significant medium to large sized area of trinity-infarct ischemia seen in the left circumflex artery territory. 2. LV systolic function is normal Cardiac echo CONCLUSIONS LV systolic function is normal with EF of 60 -65%. Mild mitral regurgitation. Mild tricuspid regurgitation Trace pulmonic regurgitation Compared to prior echocardiogram from 2021, LV systolic function appears to be improved. ? Plan ? Continue aspirin, statin, Plavix, Coreg ? Status post coronary angiography today status post 1 stent to SVG to diagonal ? Cardiology consulted ? Monitor chest pain Osteoarthritis predominantly involving the knees on diclofenac which is currently held pending cardiac evaluation, will give Tylenol in place of this VTE prophylaxis: Lovenox Antibiotics: none Pending studies: A1c, lipid, echo, stess test (lexiscan mibi) Telemetry: ordered due to chest pain Manjarrez: not currently indicated Line(s): peripheral IVs Disposition plan: Home with outpatient follow up to PCP and cardiology anticipated, possibly with medication adjustments (coreg) Code Status: Full Code Supportive care otherwise Findings, concerns and plans were discussed with patient and he was given an opportunity to ask questions Attestations Medical Necessity Statement*: Patient requires hospitalization for cardiac cath Diagnoses ASHD (arteriosclerotic heart disease) I25.10 Primary hypertension I10 Hypertension type: primary hypertension Dyslipidemia E78.5 Prediabetes R73.03 MARISSA (obstructive sleep apnea) G47.33 BMI 36.0-36.9,adult Z68.36
[2024-08-16] MEDS: enoxaparin 40 mg/0.4 mL Syringe SUBCUT (14:35)
[2024-08-16 17:20] LABS: Glucose Point of Care 108 mg/dL (70-110)
[2024-08-16] MEDS: acetaminophen 325 mg Tablet 650 MG PO (20:34)
[2024-08-16 20:53] LABS: Glucose Point of Care 143 mg/dL (70-110)
[2024-08-17] VITALS: BP 111/61; PULSE 57; RESP 16; TEMP 36.8; O2SAT 95
[2024-08-17 04:00] VITALS: BP 113/56; PULSE 50; RESP 14; TEMP 36.7; O2SAT 97
[2024-08-17 04:34] LABS: Basophils % 0.8 %; Eosinophils # 0.2 10^3/uL (0.0-0.8); Eosinophils % 5.8 %; Hematocrit 38.6 % (37-53); Lymphocytes # 1.2 10^3/uL (0.8-4.8); Lymphocytes % 30.7 %; Mean Corpuscular HGB Conc 32.9 g/dL (30-55); Mean Corpuscular Hemoglobin 29.6 pg (27-33); Mean Platelet Volume 9.9 fL (7.4-10.4); Monocytes # 0.8 10^3/uL (0.2-0.9); Monocytes % 19.6 %; Neutrophils % 42.8 %; Nucleated Red Blood Cells % 0 %; Platelet Count 128 10^3/cmm (157-399); Red Blood Count 4.29 10^6/uL (3.85-5.65); Red Cell Distribution Width 12.9 % (12.1-15.1); White Blood Count 3.97 10^3/uL (3.29-11.43)
[2024-08-17 04:52] LABS: Anion Gap 10.1 (5-19); Blood Urea Nitrogen 11 mg/dL (6-20); Calcium 8.5 mg/dL (8.5-10.5); Carbon Dioxide 27 mmol/L (22-29); Chloride 108 mmol/L (98-107); Creatinine Clr Calc Pharmacy 127.6935; Glomerular Filtration Rate 87.3 mL/min (90-130); Glucose 109 mg/dL (65-115); Osmolality Calculated 292 mOsm/kg (285-295); Potassium 4.1 mmol/L (3.5-5.1); Sodium 141 mmol/L (136-145)
[2024-08-17 05:20] VITALS: PULSE 44
[2024-08-17 06:30] LABS: Glucose Point of Care 106 mg/dL (70-110)
[2024-08-17 07:09] VITALS: BP 112/75; PULSE 59; RESP 12; TEMP 36.8; O2SAT 97
--- NOTE | 2024-08-17 07:54 | PM.PN ---
Vitals/I&O/Wt Last Vital Signs Temp 98.2 F 08/17/24 07:09 Pulse 59 L 08/17/24 07:09 Resp 12 08/17/24 07:09 BP 112/75 08/17/24 07:09 Pulse Ox 97 08/17/24 07:09 O2 Del Method Room Air 08/17/24 07:09 08/16/24 08/17/24 08/17/24 22:59 06:59 14:59 Intake Total 480 / 840 200 / 1040 Balance 480 / 840 200 / 1040 Weight last 48 hrs Weight 130 lb Weight 278 lb 11.2 oz Data 08/17/24 04:01 08/17/24 04:01 Coding Level of Care Code Acute Code for Chg Fwd
[2024-08-17] MEDS: aspirin 81 mg EC Tablet PO (09:08)
[2024-08-17] MEDS: clopidogrel 75 mg Tablet PO (09:08)
[2024-08-17] MEDS: pantoprazole DR 40 mg Tablet PO (09:08)
[2024-08-17] MEDS: amlodipine 10 mg Tablet PO (09:08)
[2024-08-17] MEDS: atorvastatin 40 mg Tablet 80 MG PO (09:08)
[2024-08-17] MEDS: carvedilol 3.125 mg Tablet 6.25 MG PO (09:12)
--- NOTE | 2024-08-17 10:02 | P.DS_ITS ---
Discharge Providers Date of Admission: 08/14/24 12:34 Date of Discharge: August 17, 2024 Attending Provider at Admission: Kathe Etienne MD Attending Provider at Discharge: Amari Sigala MD Primary Care Provider: JAMIE Campos Diagnoses at Discharge Discharge Diagnosis (1) ASHD (arteriosclerotic heart disease): Status: Chronic (2) HTN (hypertension): Status: Chronic Qualifiers: Hypertension type: primary hypertension Qualified Code(s): I10 - Essential (primary) hypertension (3) Dyslipidemia: Status: Chronic (4) Prediabetes: Status: Chronic (5) MARISSA (obstructive sleep apnea): Status: Chronic (6) BMI 36.0-36.9,adult: Status: Chronic Reason for Visit Reason for Visit: abn bp / (some chest pain) Hospital Course Hospital Course This is a 58-year-old male with past medical history of CAD status post CABG, who presents [facility] for chest pain Patient was admitted to [facility] for chest pain Chest pain Cardiac stress testing IMPRESSIONS 1. Abnormal myocardial perfusion imaging with medium sized area of prior infarct with significant medium to large sized area of trinity-infarct ischemia seen in the left circumflex artery territory. 2. LV systolic function is normal Cardiac echo CONCLUSIONS LV systolic function is normal with EF of 60 -65%. Mild mitral regurgitation. Mild tricuspid regurgitation Trace pulmonic regurgitation Compared to prior echocardiogram from 2021, LV systolic function appears to be improved. -Cardiology consulted -Underwent coronary angiography with PCI to SVG to diagonal artery, SVG to OM was patent, LOPEZ is atretic and occluded, [place] LAD is patent ? Monitor 24 hours thereafter, patient did well, no recurrent chest pain, -Discharged on aspirin, statin, Plavix, Coreg, with close follow-up with primary care and cardiology as outpatient ? Patient was advised if he were to have any recurrent chest pain to go to the emergency room Physical Exam Const: COMMON NORMALS: no acute distress and patient oriented x3 Resp: COMMON NORMALS: normal respiratory effort, No retractions, No use of accessory muscles and clear to auscultation bilaterally AUSCULTATION: clear to auscultation bilaterally Cardio: COMMON NORMALS: regular rate, regular rhythm, S1 normal heart sound present and S2 normal heart sound present RATE: regular rate RHYTHM: regular rhythm HEART SOUNDS: S1 normal heart sound present and S2 normal heart sound present GI: COMMON NORMALS: Normal to inspection, nondistended, normoactive bowel sounds present and non-tender Extremity: COMMON NORMALS: no pedal edema Neuro: COMMON NORMALS: patient oriented x3 Psych: COMMON NORMALS: mental status grossly normal Discharge Data Studies Completed and Pending Completed Studies During Hospitalization Category Date Time Status Cardiac Stress Test MIBI [Sestamibi Stress Test Request Exams 08/14/24 14:03 Draft ] Routine XR chest 1V portable [id number] Stat Exams 08/14/24 07:55 Completed NM mariel perf SPECT r/s* [id number] Routine Nuc Med 08/15/24 14:03 Completed CV. echo complete* [id number] Routine Ultrasound 08/14/24 14:03 Completed Pending at discharge Category Date Time Status BARREL PLANER request for service Routine Exams 08/16/24 05:13 Taken Basic Metabolic Panel AM LABS Lab 08/18/24 04:00 Ordered Complete Blood Count w/Auto AM LABS Lab 08/18/24 04:00 Ordered Radiology Impressions Chest X-Ray 08/14/24 07:55 IMPRESSION: 1. Negative chest. Laboratory Results WBC 3.97 10^3/uL (3.29-11.43) 08/17/24 04:01 RBC 4.29 10^6/uL (3.85-5.65) 08/17/24 04:01 Hgb 12.70 g/dL (11.27-16.99) 08/17/24 04:01 Hct 38.6 % (37-53) 08/17/24 04:01 MCV 90.0 fl (82-101) 08/17/24 04:01 MCH 29.6 pg (27-33) 08/17/24 04:01 MCHC 32.9 g/dL (30-55) 08/17/24 04:01 RDW 12.9 % (12.1-15.1) 08/17/24 04:01 Plt Count 128 10^3/cmm (157-399) L 08/17/24 04:01 MPV 9.9 fL (7.4-10.4) 08/17/24 04:01 Neut % (Auto) 42.8 % 08/17/24 04:01 Lymph % (Auto) 30.7 % 08/17/24 04:01 [place] % (Auto) 19.6 % 08/17/24 04:01 Eos % (Auto) 5.8 % 08/17/24 04:01 Baso % (Auto) 0.8 % 08/17/24 04:01 Neut # (Auto) 1.70 10^3/uL (1.8-7.7) L 08/17/24 04:01 Lymph # (Auto) 1.2 10^3/uL (0.8-4.8) 08/17/24 04:01 [place] # (Auto) 0.8 10^3/uL (0.2-0.9) 08/17/24 04:01 Eos # (Auto) 0.2 10^3/uL (0.0-0.8) 08/17/24 04:01 Baso # (Auto) 0.0 10^3/uL (0.0-0.1) 08/17/24 04:01 Nucleated RBC % (auto) 0 % 08/17/24 04:01 Nucleated RBCs # 0.0 /100WBC 08/17/24 04:01 PT 14.60 SECONDS (12.1-14.9) 08/15/24 03:47 INR 1.10 (0.8-1.2) 08/15/24 03:47 APTT 30.1 SECONDS (23.9-36.7) 08/15/24 03:47 Sodium 141 mmol/L (136-145) 08/17/24 04:01 Potassium 4.1 mmol/L (3.5-5.1) 08/17/24 04:01 Chloride 108 mmol/L (98-107) H 08/17/24 04:01 Carbon Dioxide 27 mmol/L (22-29) 08/17/24 04:01 Anion Gap 10.1 (5-19) 08/17/24 04:01 BUN 11 mg/dL (6-20) 08/17/24 04:01 Creatinine 0.9 mg/dL (0.7-1.2) 08/17/24 04:01 GFR Calculation 87.3 mL/min (90-130) L 08/17/24 04:01 Glucose 109 mg/dL (65-115) 08/17/24 04:01 POC Glucose 106 mg/dL (70-110) 08/17/24 06:10 Estimat Average Glucose 131 08/15/24 03:47 Hemoglobin A1c 6.2 % (4.0-6.0) H 08/15/24 03:47 Calculated Osmolality 292 mOsm/kg (285-295) 08/17/24 04:01 Calcium 8.5 mg/dL (8.5-10.5) 08/17/24 04:01 Phosphorus 3.0 mg/dL (2.5-4.5) 08/15/24 03:47 Magnesium 1.7 mg/dL (1.7-2.3) 08/15/24 03:47 Total Bilirubin 0.8 mg/dL (0.15-1.2) 08/14/24 08:18 AST 33 U/L (0-40) 08/14/24 08:18 ALT 38 U/L (0-41) 08/14/24 08:18 Alkaline Phosphatase 63 U/L (40-130) 08/14/24 08:18 Troponin T Baseline 19 ng/L (0-15) H 08/14/24 08:18 Troponin T 120 Minute 18.77 ng/L (0-15) H 08/14/24 10:18 Delta Troponin T -0.23 ABS# (0-10) L 08/14/24 10:18 Troponin T Hi Sens 6Hr 15.74 ng/L (0-15) H 08/14/24 14:45 Troponin T Hi Sens 6Hr Delta -3.26 ng/L (0-12) L 08/14/24 14:45 NT-Pro-B Natriuret Pep 40 pg/mL (0-125) 08/15/24 03:47 Total Protein 6.4 g/dL (6.6-8.7) L 08/14/24 08:18 Albumin 4.2 g/dL (3.5-5.2) 08/14/24 08:18 Globulin 2.2 g/dL (1.3-4.6) 08/14/24 08:18 Triglycerides 114 mg/dL (0-150) 08/15/24 03:47 Cholesterol 109 mg/dL (0-200) 08/15/24 03:47 LDL Cholesterol, Calc 53 mg/dL (50-129) 08/15/24 03:47 HDL Cholesterol 33 mg/dL (60-100) L 10/01/24 03:47 LDL/HDL Ratio 1.61 RATIO (0.00-3.22) 08/15/24 03:47 Cholesterol/HDL Ratio 3.30 mg/dL (1.0-5.00) 08/15/24 03:47 Vitals Last Vital Signs Temp 98.2 F 08/17/24 07:09 Pulse 59 L 08/17/24 07:09 Resp 12 08/17/24 07:09 BP 112/75 08/17/24 07:09 Pulse Ox 97 08/17/24 07:09 O2 Del Method Room Air 08/17/24 07:09 Discharge Plan Discharge Patient Disposition: Home Condition: Stable Prescriptions: New nitroglycerin 0.4 mg Tablet, Sublingual 0.4 mg sublingual Q5M PRN (Reason: Chest Pain) 30 Days Qty: 30 0RF Continued metformin 500 mg tablet 500 mg PO BID amlodipine 10 mg tablet 10 mg PO DAILY clopidogrel 75 mg tablet 75 mg PO DAILY 30 Days Qty: 30 0RF aspirin [Adult Low Dose Aspirin] 81 mg tablet,delayed release (DR/EC) 81 mg PO DAILY 30 Days Qty: 30 0RF carvedilol [Coreg] 3.125 mg tablet 6.25 mg PO BID 30 Days Qty: 90 0RF Rx Instructions: must administer with a meal/food rosuvastatin 20 mg tablet 20 mg PO DAILY 30 Days Qty: 30 3RF Discontinued diclofenac sodium 75 mg tablet,delayed release (DR/EC) 75 mg PO DAILY Discharge Orders: Discharge Order (Routine); Ordered 08/17/24 Ordered By: Amari Sigala Referrals: Celine Gonzalez FNP [Primary Care Provider] - Tavon Crisostomo M.D [Physician] - 2 weeks Discharge Diet: Cardiac Discharge Activity: Resume usual activity Patient Instructions: Opioid Safety Activity Restrictions/Additional Instructions: - If you develop any recurrent chest pain please go to the emergency room ? Please follow-up cardiology in 1 week Discharge Attestations Time Spent in Discharge Care*: greater than 30 min Quality Metrics Clinical Quality Measures [ Acute Myocardial Infaction { Clinical Trial Participant: No; Contraindication to aspirin: None; Aspirin prescribed; Contraindication to statin: None; Statin prescribed; Contraindication to PCI: None; PCI performed;}] Coding Level of Care Code 93986 Total time (in minutes) for Discharge: 45 Diagnoses ASHD (arteriosclerotic heart disease) I25.10 Primary hypertension I10 Hypertension type: primary hypertension Dyslipidemia E78.5 Prediabetes R73.03 MARISSA (obstructive sleep apnea) G47.33 BMI 36.0-36.9,adult Z68.36
[2024-08-17 10:48] VITALS: BP 143/96; PULSE 94; RESP 13; TEMP 36.9; O2SAT 96
--- NOTE | 2024-08-17 10:51 | PC.NURSE ---
All D/C instructions educated to patient and at bedside, IV dc. patient transported home by
== END 2024-08-17 10:52 | disposition home or self-care (01) ==
LOC: ER 09:49 → CSU 12:35
PROVIDERS: Internal Medicine; Admitting Provider Hospitalist; Emergency Provider Family Medicine; PCP Nurse Practitioner Family; Visit Provider Family Medicine
DX: I25.810 Atherosclerosis of coronary artery bypass graft(s) without angina pectoris (principal); M17.0 Bilateral primary osteoarthritis of knee; I25.10 Atherosclerotic heart disease of native coronary artery without angina pectoris; R07.2 Precordial pain; I10 Essential (primary) hypertension; E78.5 Hyperlipidemia, unspecified; G47.33 Obstructive sleep apnea (adult) (pediatric); R73.03 Prediabetes; Z95.1 Presence of aortocoronary bypass graft; Z79.899 Other long term (current) drug therapy; Z79.82 Long term (current) use of aspirin; Z88.0 Allergy status to penicillin; I08.1 Rheumatic disorders of both mitral and tricuspid valves; Z79.84 Long term (current) use of oral hypoglycemic drugs
CPT/HCPCS: 36415; 36416; 71045; 78452; 80048; 80053; 80061; 82962; 83036; 83735; 83880; 84100; 84484; 85025; 85347; 85610; 85730; 93005; 93017; 93306; 93455; 96372; 96374; 96375; 99152; 99153; 99285; A9500; C1760; C1769; C1874; C1887; C1894; C9600; G0269; G0378; J1644; J1650; J1815; J1940; J2250; J2785; J3010; J7030; Q9967

== ENCOUNTER 2025-02-16 11:45 | Outpatient (CLI) | payer BC, SELFPAY ==
[2025-02-16 12:14] VITALS: BMI 36.9
--- NOTE | 2025-02-16 12:15 | ECG_ITS ---
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 Interpretive Statements EXERCISE STRESS TEST EXERCISE DATA: The patient was exercised by Kip protocol. Baseline heart rate was 61 beats per minute. Baseline blood pressure was 151/91 millimeters of mercury. Maximal predicted heart rate was 163 beats per minute. Maximum heart rate achieved was 146, which was 89% of the maximum predicted heart rate. Maximum blood pressure was 209/96 millimeters of mercury. Total exercise time was 9 minutes and 31 seconds. Maximum METs achieved was 13.5. The reason for ending the test was completion of protocol. The patient complained of shortness of breath during the stress test, which then resolved at the end of the test. ELECTROCARDIOGRAM: BASELINE: Showed sinus rhythm, right bundle branch block, PVCs, no significant ST-T changes at the baseline noted. [] EXERCISE: At the peak exercise level, [] No significant ST-T changes suggestive of ischemia noted. [] RECOVERY: During the recovery period, heart rate dropped appropriately. No significant ST-T changes in the recovery suggestive of ischemia noted. PVCs seen[] CONCLUSION: 1. Exercise capacity is excellent 2. Heart rate response was appropriate 3. Blood pressure response was hypertensive 4. Symptoms not suggestive of ischemia. 5. Baseline right bundle branch block significantly reduces the sensitivity of the stress test. No major ST abnormalities seen on exercise with baseline RBBB, can not completely rule out ischemia. Electronically Signed On 03-03-2025 21:17:30 CDT by Tavon Crisostomo M.D. [email or web address]
[2025-02-16 12:47] VITALS: BP 138/77; PULSE 78
== END 2025-02-16 11:46 | disposition home or self-care (01) ==
PROVIDERS: PCP Nurse Practitioner Family; Visit Provider Nurse Practitioner Family
DX: I25.10 Atherosclerotic heart disease of native coronary artery without angina pectoris (principal); I45.10 Unspecified right bundle-branch block
CPT/HCPCS: 93017